=== PATIENT | male | born 1990 | race Caucasian/White ===

== ENCOUNTER 2024-05-07 08:37 | Emergency (ER) | payer SELFPAY ==
[2024-05-07 08:47] VITALS: BP 138/90; PULSE 103; RESP 16; TEMP 36.9; O2SAT 100
--- NOTE | 2024-05-07 09:25 | ED.ANIMALBIT ---
HPI - Animal Bite General Chief Complaint: Animal Bite Stated Complaint: Dog Bite Time Seen by Provider: 05/07/24 09:25 Source: patient Mode of arrival: ambulatory Limitations: no limitations History of Present Illness HPI narrative: 33-year-old male presents with dog bite to right hand and right wrist. Injury happened around 5:00 p.m. yesterday evening. Patient is fall strain a new dog, got out of his harness and patient went to grab dog and it bit him. Dog is up-to-date on vaccines. Was recommended by [facility] staff that patient be seen for dog bites. Tetanus not up-to-date. Range of motion and distal neurovascularly intact to right upper extremity. All systems reviewed and negative except as noted above. Related Data Allergies Allergy/AdvReac Type Severity Reaction Status Date / Time Penicillins Allergy Unknown Unknown Verified 05/07/24 08:48 Review of Systems Review of Systems: CONSTITUTIONAL: Denies fever, chills, or sweats. EYES: Denies visual changes, redness, or discharge. ENT: Denies rhinorrhea, congestion, sore throat, or otalgia. CARDIOVASCULAR: Denies chest pain, palpitations, or edema. RESPIRATORY: Denies cough or dyspnea. GASTROINTESTINAL: Denies abdominal pain, nausea, vomiting, or diarrhea. GENITOURINARY: Denies dysuria or hematuria. SKIN: Denies rash or itching. Reports dog bite to right hand and right wrist. MUSCULOSKELETAL: Denies back pain, joint pain, or myalgia. NEUROLOGIC: Denies headache, numbness, or weakness. PSYCHIATRIC: Denies anxiety or depression. All other systems reviewed are negative, except as documented in HPI. PMFSH Social History Social History Smoking status: Never smoker Alcohol intake: current Comments At time of signature, agree with nursing past medical, surgical, social and family history. There is no relevant family history pertinent to the presenting complaint. Exam Narrative: GENERAL: This is a well-nourished, well-developed patient, in no apparent distress. HEAD: normocephalic, atraumatic. EYES: PERRL. Sclera clear/white. Vision is grossly intact. EARS: External ears normal NOSE: External nose normal NECK: Neck supple, non-tender without lymphadenopathy, masses or thyromegaly. CARDIOVASCULAR: Regular rate and rhythm without murmurs, gallops, or rubs. RESPIRATORY: Clear to auscultation. Breath sounds equal bilaterally. No wheezes, rales, or rhonchi. SKIN: warm, Dry, intact with no suspicious lesions or rash, good texture and turgor. Puncture wound to webbing of right index and middle finger with surrounding erythema and swelling. No drainage. Skin avulsion wound to anterior aspect of right wrist, radial aspect. Bleeding controlled. NEURO: awake, alert, and oriented to person, place and time. There were no obvious focal neurologic abnormalities. EXTREMITIES: No joint tenderness, effusion, or edema noted. Course Course Level of Care: Express Care Visit Vital Signs Vital signs: Vital Signs Temperature 36.9 C 05/07/24 08:47 Pulse Rate 103 H 05/07/24 08:47 Respiratory Rate 16 05/07/24 08:47 Blood Pressure 138/90 05/07/24 08:47 Pulse Oximetry 100 05/07/24 08:47 Oxygen Delivery Room Air 05/07/24 08:47 Temperature 36.9 C 05/07/24 08:47 Pulse Rate 103 H 05/07/24 08:47 Respiratory Rate 16 05/07/24 08:47 Blood Pressure 138/90 05/07/24 08:47 Pulse Oximetry 100 05/07/24 08:47 Oxygen Delivery Room Air 05/07/24 08:47 Reviewed MDM - Animal Bite MDM Narrative Medical decision making narrative: Will treat patient with antibiotic due to dog bite. Range of motion and distal neurovascularly intact. Tetanus updated. Patient is aware of diagnosis, understands and agrees to treatment plan. Anticipatory guidance given. Patient agrees to follow-up as directed and is aware of reasons to seek care at the emergency department. Portions of this record may have been created with voice recognition software [employer]
[2024-05-07] MEDS: TETANUS,DIPHTHERIA,AC PERTUSSIS ADULT (0.5 ML) BOOSTRIX IM (09:36)
== END 2024-05-07 09:42 | disposition home or self-care (01) ==
PROVIDERS: Emergency Provider Nurse Practitioner Family
DX: S61.431A Puncture wound without foreign body of right hand, initial encounter (principal); S61.551A Open bite of right wrist, initial encounter; W54.0XXA Bitten by dog, initial encounter; Z23 Encounter for immunization
CPT/HCPCS: 90471; 90715; 99213; G0463